=== PATIENT | male | born 1990 | race Caucasian/White ===

== ENCOUNTER 2019-01-31 18:45 | Emergency (ER) | payer OTHER ==
[~2019-01-31] VITALS: Ht 195.6 cm; Wt 94.4 kg
[2019-01-31 19:05] VITALS: BP 146/83
--- NOTE | 2019-01-31 19:40 | NUR ---
C/O BILAT TESTICULAR SWELLING X2 WEEKS 06/05 SUSANNA. PT STATES HE WAS RECENTLY SEEN AT ANOTHER HOSPITAL FOR THE SAME PROBLEM AND THEY "JUST SENT HIM HOME WITH IBUPROFEN". DENIES N/V/D/FEVER. PT REPORTS SLIGHT HESITANCY WHEN URINATING. BED IN LOW POSITION, PT PLACED IN GOWN. SIDE RAIL UP X1
--- NOTE | 2019-01-31 19:49 | NUR ---
URINE COLLECTED AND SENT TO LAB
--- NOTE | 2019-01-31 19:51 | NUR ---
PT LEFT TO U/S
--- NOTE | 2019-01-31 20:25 | NUR ---
PATIENT SITTING UP IN BED. NO NEEDS STATED AT THIS TIME.
[2019-01-31 20:37] LABS: APPEARANCE,URINE CLEAR (CLEAR); BILIRUBIN,URINE NEGATIVE (NEGATIVE); BLOOD, URINE NEGATIVE (NEGATIVE); COLOR,URINE YELLOW (YELLOW); LEUKOCYTE ESTERASE ,URINE NEGATIVE (NEGATIVE); NITRITE, URINE NEGATIVE (NEGATIVE); UGLUCOSE NEGATIVE (NEGATIVE)
[2019-01-31] MEDS ORDERED: cefTRIAXone 1,000 MG in LIDOCAINE MPF 1% - 5 mL VIAL 2.1 ML IM ONE (21:35)
[2019-01-31 21:55] VITALS: BP 132/78
--- NOTE | 2019-01-31 21:56 | NUR ---
Patient discharged with v/s stable. Written and verbal after care instructions given and explained. Patient alert, oriented and verbalized understanding of instructions. Ambulatory with steady gait. All questions addressed prior to discharge. ID band removed. Patient advised to follow up with PMD. Rx of DOXYCYCLINE, NORCO given. Patient educated on indication of medication including possible reaction and side effects. Opportunity to ask questions provided and answered.
== END 2019-01-31 21:55 | disposition home or self-care (01) ==
LOC: MED 18:45
DX: N45.2 Orchitis (principal); N50.9 Disorder of male genital organs, unspecified
CPT/HCPCS: 76870; 81003; 96372; 99284; J0696; J2001